=== PATIENT | male | born 1980 | race Two or more races ===

== ENCOUNTER → 2024-01-26 | Emergency (ER) | payer OTHER ==
[~2024-01-26] VITALS: Ht 170.2 cm; Wt 81.6 kg
[~2024-01-26] MED LIST: 0.9 % SODIUM CHLORIDE 500 ML IV ONE; ACETAMINOPHEN 325 MG TABLET PO ONE; FAMOtidine 10 MG/ML (4ML VIAL) IV ONE; LOPRESSOR25 MG PO; LYRICA225 MG; MEDROLPACK PO; METHYLPREDNISOLONE SOD SUCC 40 MG VIAL IM ONE; [UNRECOGNIZED DRUG - OTHER] PO
[2024-01-26 14:19] LABS: HEMATOCRIT 43.6 % (39.0-48.0); HEMOGLOBIN 14.5 g/dL (13-16.00); MEAN CELL VOLUME 86.7 fL (80.0-100.00); MEAN CORPUSCULAR HEMOGLOBIN 28.8 pg (27.00-32.0); MEAN CORPUSCULAR HGB CONC 33.3 g/dl (32.0-36.0); PLATELET COUNT 244 K/uL (150-450); RED BLOOD COUNT 5.03 M/uL (4.00-6.00); RED CELL DISTRIBUTION WIDTH 13.9 % (11.5-14.5)
[2024-01-26 15:29] LABS: ALBUMIN 2.6 gm/dL (3.4-5.0); BILIRUBIN TOTAL 0.35 mg/dL (0.3-1.2); CALCIUM 8.5 mg/dL (8.5-10.1); CREATININE SERUM 0.6 mg/dL (0.70-1.30); GFR 145.7; GLOBULINA 3.9 G/DL (2.4-3.5); POTASSIUM 3.65 mEq/L (3.5-5.1); TOTAL PROTEIN 6.5 gm/dL (6.4-8.2)
== END | disposition home or self-care (01) ==
LOC: ER 12:29
PROVIDERS: General Practice
DX: M32.8 Other forms of systemic lupus erythematosus (principal); J00 Acute nasopharyngitis [common cold]; I10 Essential (primary) hypertension; M79.7 Fibromyalgia; Z20.822 Contact with and (suspected) exposure to COVID-19; Z88.8 Allergy status to other drugs, medicaments and biological substances

== ENCOUNTER 2024-03-07 08:18 | Emergency (ER) | payer OTHER ==
[~2024-03-07] VITALS: Ht 170.2 cm; Wt 79.4 kg
[~2024-03-07 08:18] MED LIST changes: -0.9 % SODIUM CHLORIDE 500 ML IV ONE; -ACETAMINOPHEN 325 MG TABLET PO ONE; -FAMOtidine 10 MG/ML (4ML VIAL) IV ONE; -METHYLPREDNISOLONE SOD SUCC 40 MG VIAL IM ONE
[2024-03-07] MEDS ORDERED: METHYLPREDNISOLONE SOD SUCC 125 MG VIAL IV STA (08:52)
[2024-03-07] MEDS ORDERED: DIPHENHYDRAMINE HCL 50 MG/ML VIAL 1ML IM STA (08:53)
[2024-03-07] MEDS ORDERED: cloNIDine HCL 0.2 MG TABLET PO STA (08:54)
[2024-03-07] MEDS ORDERED: 0.9 % SODIUM CHLORIDE 1,000 ML IV STA (08:55)
[2024-03-07 09:39] LABS: HEMATOCRIT 47.2 % (39.0-48.0); HEMOGLOBIN 15.6 g/dL (13-16.00); MEAN CELL VOLUME 84.3 fL (80.0-100.00); MEAN CORPUSCULAR HEMOGLOBIN 27.8 pg (27.00-32.0); PLATELET COUNT 321 K/uL (150-450); RED CELL DISTRIBUTION WIDTH 14.9 % (11.5-14.5)
[2024-03-07 09:58] LABS: ERYTHROCYTE SEDIMENTATION RATE 27 mm/hr
[2024-03-07 10:29] LABS: CALCIUM 8.9 mg/dL (8.5-10.1); CREATININE SERUM 1.46 mg/dL (0.70-1.30); GFR 51.98; POTASSIUM 3.8 mEq/L (3.5-5.1)
[2024-03-07 10:34] LABS: PH,URINE 5.5 (5.0-8.0); URINE APPEARANCE Clear; URINE BILIRRUBIN Negative (NEGATIVE); URINE BLOOD Negative; URINE COLOR Yellow; URINE GLUCOSE Negative (NEGATIVE); URINE KETONE Negative (NEGATIVE); URINE LEUKOCYTE Negative; URINE NITRATE Negative; URINE PROTEIN 30 (NEGATIVE); URINE UROBILINOGEN 0.2 E.U./dl
[2024-03-07 10:38] LABS: URINE BACTERIA 19.5 uL (0.0-1933); URINE CAST 2.94 uL (0.0-1.40); URINE EPITHELIAL CELLS 12.9 uL (0.0-38.8); URINE RBC 4.1 uL (0.0-20.8); URINE WBC 26.1 uL (0.0-23.2)
[2024-03-07] MEDS ORDERED: KETOROLAC TROMETHAMINE 60 MG VIAL IM STA (11:12)
[2024-03-07] MEDS ORDERED: NIFEDIPINE 20 MG CAPSULE PO STA (11:30)
[2024-03-07] MEDS ORDERED: CEFTRIAXONE SODIUM 1,000 MG VIAL IV STA (15:22)
[2024-03-07] MEDS ORDERED: PIPERACILLIN/TAZOBACTAM SODIUM 3.375 GM VIAL IV ONE (17:30)
[2024-03-07] MEDS ORDERED: KETOROLAC TROMETHAMINE 60 MG VIAL IM ONE (17:30)
[2024-03-08] MEDS ORDERED: METHYLPREDNISOLONE SOD SUCC 40 MG VIAL IV SCH (00:53)
[2024-03-08] MEDS ORDERED: PIPERACILLIN/TAZOBACTAM SODIUM 3.375 GM in 0.9 % SODIUM CHLORIDE 100 ML IV SCH (00:53)
== END 2024-03-08 05:23 | disposition designated cancer center or children's hospital (05) ==
LOC: ER 08:18
PROVIDERS: General Practice
DX: L03.818 Cellulitis of other sites (principal); I10 Essential (primary) hypertension; L93.2 Other local lupus erythematosus; Z88.8 Allergy status to other drugs, medicaments and biological substances